=== PATIENT | female | born 1990 | race Two or more races ===

== ENCOUNTER 2018-09-13 20:59 | Emergency (ER) | payer SELFPAY ==
[~2018-09-13] VITALS: Ht 170.2 cm; Wt 91.0 kg
[2018-09-13 21:26] VITALS: BP 122/50
== END 2018-09-14 03:37 | disposition left against medical advice (07) ==
LOC: ER 20:59
DX: Z53.21 Procedure and treatment not carried out due to patient leaving prior to being seen by health care provider (principal); F91.9 Conduct disorder, unspecified; Z59.0 Homelessness
CPT/HCPCS: 99283

== ENCOUNTER 2018-10-05 02:56 | Emergency (ER) | payer SELFPAY ==
[~2018-10-05] VITALS: Ht 167.6 cm; Wt 118.0 kg
[2018-10-05 03:03] VITALS: BP 128/62
[2018-10-05] MEDS ORDERED: QUETIAPINE FUMARATE 50MG TABLET PO SCH (03:45)
[2018-10-05 03:55] LABS: BASOPHILS % 0.8 % (0.0-2.0); CHLORIDE 106 mEq/L (98-107); EOSINOPHILS % 2.3 % (0.0-5.0); HEMATOCRIT. 39.3 % (36.0-48.0); HEMOGLOBIN. 13.3 g/dL (12.0-16.0); MEAN CORPUSCULAR HEMOGLOBIN 30.8 pg (28.0-32.0); MEAN PLATELET VOLUME 8.7 fl (7.4-10.4); NEUTROPHILS % 60.9 % (40.0-76.0); PLATELET 204 x1000/uL (130-400); RED BLOOD CELL COUNT 4.32 mill/uL (4.2-5.4); RED CELL DISTRIBUTION WIDTH 13.8 % (11.6-14.6)
[2018-10-05 04:00] LABS: ETHANOL BLOOD < 10 mg/dL
== END 2018-10-05 03:56 | disposition left against medical advice (07) ==
LOC: ER 03:11
DX: F20.1 Disorganized schizophrenia (principal); R47.89 Other speech disturbances; F15.10 Other stimulant abuse, uncomplicated
CPT/HCPCS: 36415; 80053; 80320; 85025; 99284; Z7610; G0480